=== PATIENT | female | born 1975 | race Caucasian/White ===

== ENCOUNTER 2017-07-12 00:57 | Emergency (ER) | payer BC, OTHER ==
[~2017-07-12 00:57] MED LIST: AMX500 PO; PRED20TA PO; SERT-234 PO
[2017-07-12 01:03] VITALS: TEMP 36.6; Ht 167.6 cm
[2017-07-12] MEDS ORDERED: IBUPROFEN 600 MG TAB PO STA (01:10)
[2017-07-12] MEDS ORDERED: FLUO40CA8 PO (01:48)
[2017-07-12] MEDS ORDERED: CETI10TA84 PO (01:48)
[2017-07-12] MEDS ORDERED: ETONMIS VAGRING (01:48)
[2017-07-12 01:52] VITALS: BP 148/100; PULSE 84; O2SAT 97
--- NOTE | 2017-07-12 02:53 | EMERGENCY ROOM VISIT NOTE ---
ED Visit Note First contact with patient: 01:00 CHIEF COMPLAINT: Ankle pain HISTORY OF PRESENT ILLNESS: This 41-year-old patient presents to the emergency department with family after sustaining an injury to the left ankle and foot with a twisting, inversion motion on a misstep tonight. The patient complains of pain along the outside of the ankle. The patient complains of pain of the foot. The patient rates the pain as throbbing and 5/10. The patient is not able to bear weight on the foot. Constant pain, worse with movement, weight bearing, and the dependent position. No knee pain, the patient is able to move their toes. No numbness or weakness of the foot, no laceration. The patient has not had a previous fracture to this ankle. The patient has taken nothing for the pain. The patient denies any other injury. Patient's family sees Dr. Nieves. REVIEW OF SYSTEMS: A 6 system review of systems was completed with positives and pertinent negatives listed in the HPI. ALLERGIES: Latex MEDICATIONS: Prozac PMH: Anxiety SOCIAL HISTORY: No drug use PHYSICAL EXAM: Vital Signs: Reviewed Nurse's notes, vital signs hypertensive. GENERAL: Pleasant female, no acute distress, but appears in pain, well-developed , well-nourished. MENTAL STATUS: Alert, oriented to person place and time, and cooperative. MUSCULOSKELETAL: The left ankle is swollen and tender over the lateral malleolus, but the skin is intact and there is no ligamentous instability. There is no fifth metatarsal tenderness. There is tenderness over the rest of the foot. There is no calf or tibia/fibular tenderness. There is no visual deformity. The foot and toes are warm and well-perfused. Dorsalis pedis pulse 2+. Sensation to pain and light touch is intact. Capillary refill less than 2 seconds. EMERGENCY DEPARTMENT COURSE: I examined the patient. Ariel Mcneil. X-rays of the ankle and foot were reviewed by myself and my attending and reveal no fracture. Air gel splint was applied to the ankle under my direction and the position was satisfactory. Neurovascular status was rechecked and intact. The patient was instructed on the use of crutches. Patient was advised to follow- up with orthopedics in a few days if symptoms persist or here in the ER sooner for severe pain, numbness, tingling, worsening signs or symptoms or as needed. Repeat blood pressure was improved. The patient was discharged home in good condition. Differential diagnosis includes sprain, strain, fracture, dislocation and other etiologies were considered. DIAGNOSIS: Left ankle sprain DISCHARGE INSTRUCTIONS: As below Current/Historical Medications Scheduled Etonogestrel/Ethinyl Estradiol (Nuvaring), 1 EA VAGRING MONTHLY Fluoxetine (Prozac), 40 MG PO DAILY Scheduled PRN Cetirizine (Zyrtec), 10 MG PO DAILY PRN for allergy season Allergies Coded Allergies: Latex1 -Allergic Contact Dermititis (Unverified Allergy, Unknown, RASH, ) Vital Signs Date Time Temp Pulse Resp B/P (MAP) Pulse Ox O2 Delivery O2 Flow Rate FiO2 07/12/17 01:52 84 20 148/100 97 07/12/17 01:03 36.6 74 20 177/108 98 Room Air Medications Administered Medications (Trade) Dose Ordered Sig/Zakiya Route Start Time Stop Time Status Last Admin Dose Admin Ibuprofen (Motrin Tab) 600 mg NOW STAT PO 07/12/17 01:10 07/12/17 01:13 DC 07/12/17 01:22 600 MG Departure Information Impression Primary Impression: Left ankle sprain Dispostion Home / Self-Care Condition GOOD Forms HOME CARE DOCUMENTATION FORM, IMPORTANT VISIT INFORMATION Patient Instructions Ankle Sprain, [facility] Additional Instructions Ibuprofen(Motrin, Advil) may be used for fever or pain. Use 600mg every six hours as needed. Take with food. Avoid using more than 2400mg in a 24 hour period. Do not use 2400mg per day for more than three consecutive days without physician direction. Prolonged inappropriate use can lead to stomach upset or ulcers. This medication can be taken if you need to drive, work, or perform activities which may be dangerous when taking narcotic pain medication. (AND/OR) Acetaminophen(Tylenol) may be used for fever or pain. Use 1000mg every six hours as needed. Avoid using more than 3000mg in a 24 hour period. This medication can be taken if you need to drive, work, or perform activities which may be dangerous when taking narcotic pain medication. Ice compresses for 20 minutes at a time four times daily for 2-3 days. Use the crutches as instructed. Rest and elevate your injury. Wear ankle gel splint until pain subsides. Do not have it so tight that you cannot feel your foot. Continue current medications. Return to the ER immediately for any numbness, tingling, severe pain, extreme swelling in the extremity or as needed. Call your Orthopedics in 3-5 days if symptoms persist to arrange follow up for your injury.
--- NOTE | 2017-07-12 07:02 | DIAGNOSTIC IMAGING REPORT ---
L ANKLE MIN 3 VIEWS ROUTINE CLINICAL HISTORY: 41 years-old Female presenting with fall, pain. TECHNIQUE: Frontal, mortise, and lateral views of the left ankle were obtained. COMPARISON: None. FINDINGS: Ankle mortise intact. Prominent enthesophyte at the origin of the plantar fascia. No acute fracture or malalignment. No advanced degenerative change. Mild soft tissue swelling over the medial malleolus. IMPRESSION: No acute osseous injury. Electronically signed by: Guille Phillips M.D. 07/12/2017 7:01 AM Dictated Date/Time: 07/12/2017 6:59 AM
--- NOTE | 2017-07-12 07:03 | DIAGNOSTIC IMAGING REPORT ---
L FOOT MIN 3 VIEWS ROUTINE CLINICAL HISTORY: 41 years-old Female presenting with fall, pain. TECHNIQUE: Frontal, oblique, and lateral views of the left foot were obtained. COMPARISON: None. FINDINGS: Accessory navicular noted. Prominent enthesophyte at the origin of the plantar fascia. Small these findings at the insertion of the Achilles tendon. No acute fracture or malalignment. No advanced degenerative change. No radiographic soft tissue abnormality. IMPRESSION: No acute osseous injury. Electronically signed by: Guille Phillips M.D. 07/12/2017 7:02 AM Dictated Date/Time: 07/12/2017 7:01 AM
== END 2017-07-12 01:53 | disposition home or self-care (01) ==
LOC: C.EDB 00:58
DX: S93.402A Sprain of unspecified ligament of left ankle, initial encounter (principal); X50.0XXA Overexertion from strenuous movement or load, initial encounter; Z91.040 Latex allergy status; F41.9 Anxiety disorder, unspecified; Z79.899 Other long term (current) drug therapy